=== PATIENT | male | born 1950 | race Two or more races ===

== ENCOUNTER 2018-02-12 09:54 | Outpatient (CLI) | payer OTHER | END 2018-02-12 09:59 | disposition home or self-care (01) | LOC: RX STUDY 09:54 | DX: K20.8 Other esophagitis (principal); K22.2 Esophageal obstruction; R13.19 Other dysphagia ==

== ENCOUNTER 2018-05-02 11:33 | Outpatient (CLI) | payer OTHER | END 2018-05-02 11:38 | disposition home or self-care (01) | LOC: RAD 11:33 | DX: R12 Heartburn (principal); K29.00 Acute gastritis without bleeding; K22.0 Achalasia of cardia ==

== ENCOUNTER 2019-08-26 18:52 | Emergency (ER) | payer OTHER ==
[~2019-08-26] VITALS: Ht 165.1 cm; Wt 72.1 kg
[2019-08-26] MEDS ORDERED: ZYLOPRIM300 MG (19:17)
[2019-08-26] MEDS ORDERED: ATORVASTATIN CA40 MG (19:17)
[2019-08-26] MEDS ORDERED: PLAVIX75 MG (19:17)
[2019-08-26] MEDS ORDERED: TENORMIN25 MG (19:18)
[2019-08-26] MEDS ORDERED: LANSOPRAZOLE30 MG (19:18)
[2019-08-26] MEDS ORDERED: ZOLOFT25 MG (19:18)
[2019-08-26] MEDS ORDERED: LOSARTAN-HCTZ1 EACH (19:18)
[2019-08-26] MEDS ORDERED: LAC-HYDRIN FIV226 GM (19:19)
[2019-08-26] MEDS ORDERED: GYNE-LOTRIMIN45 GM (19:19)
[2019-08-26] MEDS ORDERED: ALPRAZOLAM OD0.25 MG (19:19)
[2019-08-26] MEDS ORDERED: ROCALTROL0.25 MCG (19:20)
== END 2019-08-26 23:03 | disposition home or self-care (01) ==
LOC: ER 18:52
DX: N20.0 Calculus of kidney (principal)

== ENCOUNTER 2021-05-17 07:39 | Outpatient (CLI) | payer OTHER ==
[~2021-05-17 07:39] MED LIST: ALPRAZOLAM OD0.25 MG; ATORVASTATIN CA40 MG; GYNE-LOTRIMIN45 GM; LAC-HYDRIN FIV226 GM; LANSOPRAZOLE30 MG; LOSARTAN-HCTZ1 EACH; PLAVIX75 MG; ROCALTROL0.25 MCG; TENORMIN25 MG; ZOLOFT25 MG; ZYLOPRIM300 MG
== END 2021-05-17 08:07 | disposition home or self-care (01) ==
LOC: RAD 07:39
PROVIDERS: ATTEND Physical Medicine & Rehabilitation
DX: H30.93 Unspecified chorioretinal inflammation, bilateral (principal)

== ENCOUNTER 2021-05-17 08:23 | Outpatient (CLI) | payer OTHER | END 2021-05-17 08:29 | disposition home or self-care (01) | LOC: LAB 08:23 | PROVIDERS: ATTEND Radiology Diagnostic Radiology | DX: H30.93 Unspecified chorioretinal inflammation, bilateral (principal) ==

== ENCOUNTER 2021-10-04 21:12 | Emergency (ER) | payer OTHER ==
[~2021-10-04] VITALS: Ht 165.1 cm; Wt 68.0 kg
== END 2021-10-05 01:45 | disposition home or self-care (01) ==
LOC: ER 21:12
DX: M79.662 Pain in left lower leg (principal); Z88.8 Allergy status to other drugs, medicaments and biological substances; I10 Essential (primary) hypertension; E03.9 Hypothyroidism, unspecified; Z95.1 Presence of aortocoronary bypass graft

== ENCOUNTER 2021-10-05 09:18 | Emergency (ER) | payer OTHER ==
[~2021-10-05] VITALS: Ht 165.1 cm; Wt 70.3 kg
== END 2021-10-05 15:10 | disposition home or self-care (01) ==
LOC: ER 09:18
DX: R60.0 Localized edema (principal); Z88.8 Allergy status to other drugs, medicaments and biological substances; Z95.1 Presence of aortocoronary bypass graft; E03.9 Hypothyroidism, unspecified; I10 Essential (primary) hypertension; F32.9 Major depressive disorder, single episode, unspecified; I70.209 Unspecified atherosclerosis of native arteries of extremities, unspecified extremity

== ENCOUNTER 2022-02-14 20:33 | Emergency (ER) | payer OTHER ==
[~2022-02-14] VITALS: Ht 165.1 cm; Wt 68.0 kg
== END 2022-02-15 00:02 | disposition home or self-care (01) ==
LOC: ER 20:33
DX: T78.1XXA Other adverse food reactions, not elsewhere classified, initial encounter (principal); Z88.8 Allergy status to other drugs, medicaments and biological substances

== ENCOUNTER → 2022-03-02 | Emergency (ER) | payer OTHER ==
[~2022-03-02] MED LIST changes: +LEVOTHYROXINE25 MC1 PO
== END | disposition home or self-care (01) ==
LOC: ER 06:39
DX: T78.40XA Allergy, unspecified, initial encounter (principal); Z88.8 Allergy status to other drugs, medicaments and biological substances

== ENCOUNTER 2022-03-04 07:55 | Outpatient (CLI) | payer OTHER | END 2022-03-04 07:58 | disposition home or self-care (01) | LOC: RX STUDY 07:55 | PROVIDERS: ATTEND Internal Medicine Gastroenterology | DX: R13.10 Dysphagia, unspecified (principal) ==